=== PATIENT | female | born 1960 | race Caucasian/White ===

== ENCOUNTER 2017-08-14 08:50 | Emergency (ER) | payer BC ==
--- NOTE | 2017-08-14 09:26 | RAD ---
INDICATION: Right wrist pain. Fall COMPARISON: None TECHNIQUE: AP, lateral, and oblique views were obtained. FINDINGS: There are no acute bony findings. There is advanced osteoarthritic change about the first carpometacarpal articulation with sclerosis, subchondral cyst rotation, and hypertrophic bony change. No additional significant osseous findings are noted. There is calcification of the triangular fibrocartilage complex. IMPRESSION: ADVANCED OSTEOARTHRITIS BASE OF THE THUMB. NO ACUTE FINDINGS
[2017-08-14] MEDS ORDERED: Ketorolac INJ* 30 MG/ML 1 ML VIAL IM ONE (09:50)
--- NOTE | 2017-08-14 09:51 | ED ---
Upper Extremity Pain - HPI Summary HPI Summary: This pt is a 56 y/o female presenting to [facility] c/o right hand pain s/p fall yesterday afternoon. Pt reports she was at the gas station yesterday when there was a pot hole and she tripped over it. She notes she came down on her right knee and caught herself with her right hand. No head strike or LOC. Currently states she has worsening right hand pain and mild swelling on right knee, but no right knee pain. Denies any other injuries, weakness, numbness, tingling, neck pain, headache. PMHx includes bilateral hip replacement. - History of Current Complaint Chief Complaint: EDExtremityUpper Stated Complaint: RT WRIST INJURY Time Seen by Provider: 08/14/17 09:43 Hx Obtained From: Patient Mechanism Of Injury: Blunt Trauma, Fall From A Standing Position Onset/Duration: Started Days Ago - 1, Still Present Timing: Lasting Days - 1 Severity Currently: Severe Pain Location: Hand - right Aggravating Factor(s): Movement Alleviating Factor(s): Rest Associated Signs & Symptoms: Positive: Swelling - right knee. Negative: Fever, Weakness, Numbness/Tingling, Neck Pain - Allergies/Home Medications Allergies/Adverse Reactions: Allergies Allergy/AdvReac Type Severity Reaction Status Date / Time sumatriptan [From Imitrex] Allergy Tachycardia Verified 08/14/17 08:55 PMH/Surg Hx/FS Hx/Imm Hx Cardiovascular History: Reports: Hx Hypertension Sensory History: Reports: Hx Contacts or Glasses Opthamlomology History: Reports: Hx Contacts or Glasses - Cancer History Cancer Type, Location and Year: cervical; breast Hx Chemotherapy: Yes - Surgical History Surgery Procedure, Year, and Place: partial hysterectomy. bilat. hip replacement Infectious Disease History: No Infectious Disease History: Denies: Traveled Outside the [place] in Last 30 Days - Family History Known Family History: Positive: Cardiac Disease - father with atrial fibrillation - Social History Alcohol Use: None Substance Use Type: Reports: None Smoking Status (MU): Never Smoked Tobacco Review of Systems Negative: Fever, Chills Cardiovascular: Negative Respiratory: Negative Musculoskeletal: Other - right hand pain Positive: Edema - mild in R knee. Negative: Other - neck pain Negative: Headache, Weakness, Paresthesia, Numbness All Other Systems Reviewed And Are Negative: Yes Physical Exam - Summary Physical Exam Summary: Appearance: The patient is well-nourished in no acute distress. Skin: The skin is warm and dry and skin color reflects adequate perfusion. HEENT: The head is normocephalic and atraumatic. The pupils are equal and reactive. The conjunctivae are clear and without drainage. Nares are patent and without drainage. Mouth reveals moist mucous membranes and the throat is without erythema and exudate. The external ears are intact. The ear canals are patent and without drainage. The tympanic membranes are intact. Neck: the neck is supple with full range of motion and non-tender. There are no carotid bruits. There is no neck vein distension. Respiratory: Chest is non-tender. Lungs are clear to auscultation and breath sounds are symmetrical and equal. Cardiovascular: Heart is regular rate and rhythm. There is no murmur or rub auscultated. There is no peripheral edema and pulses are symmetrical and equal. Abdomen: The abdomen is soft and non-tender. There are normal bowel sounds heard in all four quadrants and there is no organomegaly palpated. Musculoskeletal: There is no back tenderness noted. RUE: Swelling in the thenar eminence on the right. Tenderness to ROM of R thumb and snuff box tenderness. Neurological: Patient is alert and oriented to person, place and time. Psychiatric: The patient has an appropriate affect and does not exhibit any anxiety or depression. Triage Information Reviewed: Yes Vital Signs On Initial Exam: Initial Vitals Temp Pulse Resp BP Pulse Ox 98.1 F 62 14 162/91 99 08/14/17 08:52 08/14/17 08:52 08/14/17 08:52 08/14/17 08:52 08/14/17 08:52 Vital Signs Reviewed: Yes Diagnostics - Vital Signs Vital Signs Temp Pulse Resp BP Pulse Ox 08/14/17 08:52 98.1 F 62 14 162/91 99 - Laboratory Lab Statement: Any lab studies that have been ordered have been reviewed, and results considered in the medical decision making process. - Radiology Right wrist XR Xray Interpretation: No Acute Changes - IMPRESSION: Advanced osteoarthritis base of the thumb. No acute findings. Dr. Agarwal has reviewed thsi report. Radiology Interpretation Completed By: Radiologist Course/Dx - Course Course Of Treatment: Ms. Duarte presents after having fallen on her outstretched right wrist yesterday. She complains of increased pain this morning and swelling at the base of her thumb. She is swollen over the thenar eminence and has decreased range of motion as well as snuffbox tenderness. X- ray shows no fracture of the navicular bone does show quite a bit of arthritis at the base of the thumb. She will be immobilized in a thumb spica splint with a concern for occult fracture and recommended follow-up with orthopedics. - Diagnoses Provider Diagnoses: Wrist sprain, Occult fracture of scaphoid Discharge - Sign-Out/Discharge Documenting (check all that apply): Discharge/Admit/Transfer - Discharge - Discharge Plan Condition: Stable Disposition: HOME Patient Education Materials: Wrist Sprain (ED) Referrals: Candida Hall MD [Primary Care Provider] - Jermaine Bryant MD [Medical Doctor] - Additional Instructions: Please follow up with Dr. Bryant, orthopedist. RETURN TO THE ED FOR ANY WORSENING SYMPTOMS. - Billing Disposition and Condition Condition: STABLE Disposition: Home
[2017-08-14 10:54] VITALS: BP 124/72
== END 2017-08-14 10:51 | disposition home or self-care (01) ==
LOC: ED 08:50
DX: S63.501A Unspecified sprain of right wrist, initial encounter (principal); W01.0XXA Fall on same level from slipping, tripping and stumbling without subsequent striking against object, initial encounter; Y93.89 Activity, other specified; Y92.524 Gas station as the place of occurrence of the external cause; I10 Essential (primary) hypertension; Z85.41 Personal history of malignant neoplasm of cervix uteri; Z85.3 Personal history of malignant neoplasm of breast; Z96.643 Presence of artificial hip joint, bilateral; Z90.711 Acquired absence of uterus with remaining cervical stump; Z88.8 Allergy status to other drugs, medicaments and biological substances; Z82.49 Family history of ischemic heart disease and other diseases of the circulatory system
CPT/HCPCS: 96372; 99282; J1885

== ENCOUNTER 2021-12-06 05:47 | Inpatient (IN) ==
[2021-12-06] MEDS ORDERED: Buffered Lidocaine 1% SYRIN 1 ml INTRADERM ONE (06:00)
[2021-12-06] MEDS ORDERED: Lactated Ringers 1000 ml BAG 1,000 ML IV SCH (06:00)
[2021-12-06] MEDS ORDERED: ceFAZolin 2 GM in NS PREMIX 2 GM/100 ML BAG IVPB ONE (06:07)
[2021-12-06] MEDS ORDERED: Propofol 0 MG/0 ML BTL ONE (06:55)
[2021-12-06] MEDS ORDERED: Bupivacaine 0.5% SDV PF 30ML VIAL ONE (06:55)
[2021-12-06] MEDS ORDERED: Lidocaine 2% PF 5 ML VIAL ONE ×2 (06:55→16:19)
[2021-12-06] MEDS ORDERED: Midazolam 2 mg/2 ml VIAL 1 mg/ml 2 ml VIAL (2 mg) ONE (06:55)
[2021-12-06] MEDS ORDERED: fentaNYL 100 mcg/2 ml 50 MCG/ML VIAL ONE ×2 (06:55→16:21)
[2021-12-06] MEDS ORDERED: Phenylephrine IV 10 MG/ML 1 ml VIAL ONE (07:01)
[2021-12-06] MEDS ORDERED: Ondansetron 4 mg VIAL 2 MG/ML 2 ml VIAL ONE ×2 (07:06→16:21)
[2021-12-06] MEDS ORDERED: Dexamethasone IV 4 MG/ML VIAL 1 ml VIAL ONE ×2 (07:06→16:21)
[2021-12-06] MEDS ORDERED: ROPIVACAINE 5 MG/ML 30 ML BTL (0.5%) ONE ×2 (07:21→07:29)
[2021-12-06] MEDS ORDERED: Propofol 10 MG/ML 20 ML BTL ONE (07:28)
[2021-12-06] MEDS ORDERED: Lidocaine 1% MPF 5 ML VIAL ONE (07:29)
[2021-12-06] MEDS ORDERED: HYDROmorphone 0.5 MG/0.5 ML SYRINGE ONE (08:46)
[2021-12-06] MEDS ORDERED: Glycopyrrolate IV 0.2 MG/ML 1 ML VIAL ONE (09:14)
[2021-12-06] MEDS ORDERED: Naloxone 0.4 mg VIAL 0.4 mg/ml 1 ml VIAL IV PRN (09:26)
[2021-12-06] MEDS ORDERED: Acetaminophen IV 1 GM/100ML 1,000 MG/100 ML BAG IV ONE (11:27)
[2021-12-06] MEDS ORDERED: Lactulose 30 ml UDC PO PRN (11:35)
[2021-12-06] MEDS ORDERED: Morphine 2 MG/ML SYRINGE IV PRN (11:35)
[2021-12-06] MEDS ORDERED: Magnesium Hydroxide LIQ 30 ML UDC PO PRN (11:35)
[2021-12-06] MEDS ORDERED: Prochlorperazine 5 mg/ml 2 ml VIAL (10 mg) IV PRN (11:40)
[2021-12-06] MEDS ORDERED: HYDROmorphone 1 MG/1 ML SYRINGE ONE (11:50)
[2021-12-06] MEDS: HYDROmorphone 1 MG/1 ML SYRINGE IV PRN ×4 (11:52→12:35)
[2021-12-06] MEDS ORDERED: ceFAZolin 1 GM ADVAN 1 GM in NS 0.9% 50 ML 50 ML IVPB SCH (12:00)
[2021-12-06] MEDS: Lactated Ringers 1000 ml BAG 1,000 ML IV SCH (14:13)
[2021-12-06] MEDS: ceFAZolin 1 GM ADVAN 1 GM in NS 0.9% 50 ML 50 ML IVPB SCH (16:47)
[2021-12-06] MEDS: Magnesium Hydroxide LIQ 30 ML UDC PO SCH (20:35)
[2021-12-07] MEDS: Lactated Ringers 1000 ml BAG 1,000 ML IV SCH (00:04)
[2021-12-07] MEDS: ceFAZolin 1 GM ADVAN 1 GM in NS 0.9% 50 ML 50 ML IVPB SCH ×2 (00:06→08:15)
[2021-12-07 06:01] LABS: Hematocrit 29 % (35-47); Hemoglobin 9.9 g/dL (12.0-16.0); Mean Platelet Volume 7.3 fL (7.4-10.4); Platelet Count 188 10^3/uL (150-450)
[2021-12-07 06:38] LABS: Calcium 8.6 mg/dL (8.6-10.3)
[2021-12-07 06:44] LABS: eGFR CKD-EPI 101.4 (>60)
[2021-12-07] MEDS ORDERED: Vitamin THERAPEUTIC TAB PO SCH (09:00)
[2021-12-07] MEDS ORDERED: Influenza vaccine *QUAD* *2022-23* 0.5 ML SYRINGE IM ONE (09:00)
[2021-12-07] MEDS: Magnesium Hydroxide LIQ 30 ML UDC PO SCH (09:57)
[2021-12-07 11:37] VITALS: BP 110/62
== END 2021-12-07 12:47 | disposition home or self-care (01) | DRG 302 ==
LOC: AA 05:47 → SSU 13:47 → UNDODISIN 12-07 12:47
PROVIDERS: ADMIT Orthopaedic Surgery Adult Reconstructive Orthopaedic Surgery; ATTEND Orthopaedic Surgery Adult Reconstructive Orthopaedic Surgery